=== PATIENT | male | born 1980 | race Caucasian/White ===

== ENCOUNTER → 2020-02-17 12:33 | Outpatient (CLI) | payer OTHER, SELFPAY ==
[2020-02-20 01:36] LABS: COVID19 Sendout Not Detected (Not Detected)
== END ==
PROVIDERS: Visit Provider Physician Assistant
DX: Z11.59 Encounter for screening for other viral diseases (principal); J02.9 Acute pharyngitis, unspecified
CPT/HCPCS: 87070; 87185; 87635